=== PATIENT | male | born 1985 | race African-American/Black ===

== ENCOUNTER 2017-09-17 00:07 | Emergency (ER) | payer OTHER ==
[2017-09-17] MEDS: SOD CHLORIDE 0.9% 1,000 ML IV (00:22)
[2017-09-17] MEDS: LORAZEPAM 2 MG INJ IV (00:22)
[2017-09-17 00:37] LABS: ADD MAN DIFF? NO
[2017-09-17 00:41] LABS: BASOPHILS % 0.3 % (0.0-2.0); EOSINOPHILS # 0.1 10^3/ul (0.0-0.5); EOSINOPHILS % 1.6 % (0.0-7.0); HEMATOCRIT 36.9 % (42.0-52.0); LYMPHOCYTES # 2.4 10^3/ul (0.8-2.9); MEAN CORPUSCULAR HEMOGLOBIN 31.2 pg (29.0-33.0); MEAN CORPUSCULAR HGB CONC 35.2 g/dl (32.0-37.0); MEAN CORPUSCULAR VOLUME 88.5 fl (82.0-101.0); MEAN PLATELET VOLUME 10.1 fl (7.4-10.4); MONOCYTE # 0.7 10^3/ul (0.3-0.9); MONOCYTES % 12.9 % (0.0-11.0); NEUTROPHIL # 2.5 10^3/ul (1.6-7.5); NEUTROPHILS % 42.9 % (39.0-77.0); PLATELET COUNT 270 10^3/UL (140-415); RED BLOOD COUNT 4.17 10^6/ul (4.70-6.10)
[2017-09-17 00:41] LABS: WHITE BLOOD COUNT 5.7 10^3/ul (4.8-10.8)
[2017-09-17] MEDS: LEVETIRACETAM 1000 MG (PMX) 100 ML IVPB (00:41)
[2017-09-17 01:07] LABS: ANION GAP 20 (8-16); BLOOD UREA NITROGEN 8 mg/dl (7-20); CALCIUM 9.4 mg/dl (8.4-10.2); CARBON DIOXIDE 27 mmol/L (21-31); CHLORIDE 98 mmol/L (97-110); CREATININE 0.85 mg/dl (0.61-1.24); GLUCOSE 82 mg/dl (70-220); POTASSIUM 3.2 mmol/L (3.5-5.1); SODIUM 142 mmol/L (135-144)
== END 2017-09-17 10:08 | disposition home or self-care (01) ==
LOC: E/R 00:07
DX: G40.909 Epilepsy, unspecified, not intractable, without status epilepticus (principal)
CPT/HCPCS: 36415; 70450; 80048; 80306; 85025; 96374; 96375; 99285-25